=== PATIENT | male | born 1995 | race Caucasian/White ===

== ENCOUNTER 2016-05-25 03:57 | Emergency (ER) | payer OTHER ==
[~2016-05-25] VITALS: Ht 185.4 cm; Wt 81.6 kg
--- NOTE | 2016-05-25 04:22 | ED GENERAL ADULT ---
History of Present Illness General Chief Complaint: General Adult Stated Complaint: ? ANXIETY ATTACK HX OF SAME UNABLE TO SLEEP Source: patient, family Exam Limitations: no limitations Vital Signs & Intake/Output Vital Signs & Intake/Output Vital Signs Date Time Temp Pulse Resp B/P Pulse O2 O2 Flow FiO2 Ox Delivery Rate 05/25 0600 78 18 130/69 99 05/25 0401 97.9 84 20 139/86 96 Allergies Uncoded Allergies: SEASONAL (UNKNOWN 12/15/11) Reconcile Medications Lorazepam (Ativan) 0.5 MG TABLET 1 TAB PO BIDP PRN ANXIETY Triage Nurses Notes Reviewed? yes HPI: Patient presents with worsening anxiety over the past week. Patient states that he has been unable to sleep for the past 3 days. Patient states that he is oh is been a very stressful and anxious person and he sees a therapist for this but he has never required medications for her. Patient states that every time he tries to lay down he gets very nervous and his heart begins to pound. Patient states that he was smoking marijuana every night to help him sleep but even that isn't helping anymore. Patient denies any suicidal or homicidal ideations. Patient denies any hallucinations. Patient denies any other drug use. Patient states that he did see his primary care physician for this a few weeks ago and had "a bunch of blood work and everything was fine." Past History Medical History Any Pertinent Medical History? none Surgical History Surgical History: non-contributory Psychosocial History Tobacco Use: Never used ETOH Use: occasional use Illicit Drug Use: marijuana Family History Hx Contributory? No Review of Systems Review of Systems Constitutional: Reports: no symptoms. EENTM: Reports: no symptoms. Respiratory: Reports: no symptoms. Cardiovascular: Reports: no symptoms. GI: Reports: no symptoms. Genitourinary: Reports: no symptoms. Musculoskeletal: Reports: no symptoms. Skin: Reports: no symptoms. Neurological/Psychological: Reports: see HPI, anxiety. Hematologic/Endocrine: Reports: no symptoms. Immunologic/Allergic: Reports: no symptoms. All Other Systems: Reviewed and Negative Physical Exam Physical Exam General Appearance: well developed/nourished, alert, awake, anxious, mild distress Head: atraumatic, normal appearance Eyes: Bilateral: PERRL, EOMI. Ears, Nose, Throat: normal pharynx, normal ENT inspection Neck: normal inspection, supple, full range of motion Respiratory: normal breath sounds, chest non-tender, no respiratory distress, lungs clear Cardiovascular: regular rate/rhythm, normal peripheral pulses Gastrointestinal: normal bowel sounds, soft, non-tender Back: normal inspection Extremities: normal inspection, normal capillary refill, normal range of motion, no edema Neurologic/Psych: no motor/sensory deficits, awake, alert, oriented x 3, normal gait, normal mood/affect Skin: intact, normal color, warm/dry Lymphatic: no anterior cervical mylene Core Measures ACS in differential dx? No CVA/TIA Diagnosis: No Severe Sepsis Present: No Septic Shock Present: No Progress Differential Diagnoses I considered the following diagnoses in my evaluation of the patient: [Anxiety] Plan of Care: Orders Procedure Date/time Status THYROID STIMULATING HORMONE 05/25 510 Complete FREE T4 05/25 510 Complete COMPREHENSIVE METABOLIC PANEL 05/25 510 Complete CBC WITHOUT DIFFERENTIAL 05/25 510 Complete Laboratory Tests 05/25/16 0537: Anion Gap 13, Estimated GFR > 60, BUN/Creatinine Ratio 14.5, Glucose 107 H, Calcium 10.1, Total Bilirubin 0.6, AST 33, ALT 48, Alkaline Phosphatase 53, Total Protein 7.9, Albumin 4.8, Globulin 3.1, Albumin/Globulin Ratio 1.5, TSH 4.330 H, Free T4 1.00, CBC w Diff NO MAN DIFF REQ, RBC 4.85, MCV 86.1, MCH 29.1 , RDW 12.4, MPV 7.4, Gran % 86.9 H, Lymphocytes % 10.2 L, Monocytes % 2.3, Eosinophils % 0.4, Basophils % 0.2, Absolute Granulocytes 9.1 H, Absolute Lymphocytes 1.1 L, Absolute Monocytes 0.2, Absolute Eosinophils 0, Absolute Basophils 0, PUBS MCHC 33.8 Benzodiazepines as needed for short duration. (LOLLY GARCIA,SAMANTHA Ayala) Initial ED EKG: none Comments: PT IS FEELING MUCH BETTER AND WAS ABLE TO FALL TO SLEEP. Departure Departure Disposition: HOME OR SELF CARE Condition: Stable Clinical Impression Primary Impression: Anxiety Referrals: PATIENT HAS NO PRIMARY CARE DR (PCP/Family) Additional Instructions: FOLLOW UP WITH YOUR THERAPIST AND YOUR DOCTOR RETURN IF SYMPTOMS WORSEN OR FOR ANY CONCERNS Departure Forms: Customer Survey General Discharge Information Prescriptions: Current Visit Scripts Lorazepam (Ativan) 1 TAB PO BIDP PRN ANXIETY #20 TAB Critical Care Note Critical Care Note Critical Care Time: non-applicable
[2016-05-25 05:47] LABS: ABSOLUTE BASOPHIL COUNT 0 /CUMM (0.0-0.2); ABSOLUTE EOSINOPHIL COUNT 0 /CUMM (0.0-0.7); ABSOLUTE GRANULOCYTE CT 9.1 /CUMM (1.4-6.5); ABSOLUTE LYMPH COUNT 1.1 /CUMM (1.2-3.4); ABSOLUTE MONOCYTE COUNT 0.2 /CUMM (0.10-0.60); BASOPHIL % 0.2 % (0.0-2.0); EOSINOPHIL % 0.4 % (0-5); GRANULOCYTE % 86.9 % (42.2-75.2); HEMATOCRIT 41.7 % (42-52); MEAN CORPUSCULAR HGB 29.1 PG (27.0-31.0); MEAN CORPUSCULAR HGB CONC 33.8 G/DL (33.0-37.0); MEAN CORPUSCULAR VOLUME 86.1 FL (80.0-94.0); MEAN PLATELET VOLUME 7.4 FL (7.4-10.4); PLATELET COUNT 197 /CUMM (130-400); RBC DISTRIBUTION WIDTH 12.4 % (11.5-14.5); RED BLOOD CELL CT 4.85 /CUMM (4.70-6.10); WHITE BLOOD CELL COUNT 10.4 /CUMM (4.8-10.8)
[2016-05-25 06:00] VITALS: BP 130/69
[2016-05-25] MEDS ORDERED: ATIVAN0.5 M1 PO (06:30)
== END 2016-05-25 06:55 ==
LOC: ERH 03:57
PROVIDERS: Emergency Medicine
DX: F41.9 Anxiety disorder, unspecified (principal)